=== PATIENT | female | born 1990 | race African-American/Black ===

== ENCOUNTER 2018-04-06 21:09 | Emergency (ER) | payer OTHER ==
[~2018-04-06] VITALS: Ht 157.5 cm; Wt 85.7 kg
[~2018-04-06 21:09] MED LIST: CEFTIN 250 MG250 MG
[2018-04-06 22:01] LABS: ABSOLUTE NEUTROPHILS 7.7 thou/uL (1.4-8.2); BASOPHILS 0.3 % (0.0-2.0); EOSINOPHILS 2.4 % (0.0-3.0); HEMATOCRIT 39.8 % (37.0-47.0); LYMPHOCYTES 18.2 % (24.0-44.0); MCH 29.1 pg (26.0-34.0); MCHC 32.6 g/dL (28.0-37.0); MCV 89.2 fL (80.0-100.0); MONOCYTES 5.6 % (1.0-8.0); PLATELET COUNT 360 thou/uL (150-400); POLYS 73.5 % (36.0-66.0); RBC 4.46 mil/uL (4.20-5.00); RDW 15.8 % (10.5-14.5); WBC 10.5 thou/uL (4.0-11.0)
[2018-04-06 22:04] LABS: ANION GAP 11 mmol/L (7-16); BUN 8 mg/dL (7-18); CALCIUM 9.1 mg/dL (8.5-10.1); CHLORIDE 102 mmol/L (98-107); CO2 27 mmol/L (21-32); CREATININE 0.7 mg/dL (0.6-1.0); GLUCOSE 95 mg/dL (74-106); POTASSIUM 3.8 mmol/L (3.5-5.1); SODIUM 140 mmol/L (136-145)
[2018-04-06 22:11] LABS: BACTERIA-REFLEX None Seen /HPF (None Seen); CASTS None Seen /LPF (None Seen); CRYSTALS None Seen /LPF (None Seen); MUCUS 4-6 Moderate strn/LPF (None Seen); SQUAMOUS 4-10 Moderate /LPF (0-3); TRANSITIONAL EPITHEL CELL 0-3 Few /LPF (None Seen); URINE RBC >20 Many /HPF (0-2); URINE WBC-REFLEX 6-15 Few /HPF (0-5)
[2018-04-06 22:12] LABS: ALBUMIN 3.7 g/dL (3.4-5.0); SGOT 16 U/L (15-37); SGPT 19 U/L (30-65); TOTAL BILIRUBIN 0.2 mg/dL (<0.1-1.0); TOTAL PROTEIN 7.6 g/dL (6.4-8.2); TROPONIN-I <0.06 ng/mL (<0.06)
[2018-04-06 22:19] LABS: URINE CLARITY CLOUDY; URINE COLOR RED
[2018-04-06 22:21] LABS: URINE BILIRUBIN NEGATIVE (Negative); URINE BLOOD 3+ (Negative); URINE GLUCOSE-RANDOM* TRACE (Negative); URINE KETONES 1+ (Negative); URINE PROTEIN (DIPSTICK) 3+ (Negative); URINE SPECIFIC GRAVITY 1.025 (1.005-1.035)
[2018-04-06 22:22] LABS: URINE LEUKOCYTES-REFLEX 2+ (Negative); URINE NITRITE-REFLEX POSITIVE (Negative)
[2018-04-06] MEDS ORDERED: NORFLEX100 MG PO (22:28)
[2018-04-06] MEDS ORDERED: NAPROSYN500 MG PO (22:28)
[2018-04-06 22:36] VITALS: BP 139/76
--- NOTE | 2018-04-07 13:50 | EKG ---
[address] [address] ELECTROCARDIOGRAM REPORT Name: SANDRA DINH Room #: [facility]#: [id number] Admission: 04/06/18 Attend Phys: Discharge: 04/06/18 Date of : 88 Report #: [id number] THIS REPORT FOR: //name// ED Test Date: 2018-04-06 Test Time: 21:21:22 Pat Name: SANDRA DINH Department: Room: Gender: F [employer]: XIOMARA : 1990 Requested By: Jeffrey Ivory Order Number: [id number] MD: Tab Foster Measurements Intervals [place] Rate: 75 P: 28 VT: 119 QRS: 31 QRSD: 91 T: 9 QT: 366 QTc: 409 Interpretive Statements Sinus arrhythmia Borderline T abnormalities, anterior leads No previous ECG available for comparison Electronically Signed On 04-07-2018 13:50:13 RULES EXAMINER by Tab Foster [email or web address] <ELECTRONICALLY SIGNED> By: Tab Foster MD, [facility] 04/07/18 1350 212 20 Tab Foster MD, FACC /EPI
== END 2018-04-06 22:52 | disposition home or self-care (01) ==
LOC: ER 21:09
PROVIDERS: Emergency Medicine
DX: M43.6 Torticollis (principal); R07.89 Other chest pain; R42 Dizziness and giddiness; G44.209 Tension-type headache, unspecified, not intractable; R94.6 Abnormal results of thyroid function studies; Z88.6 Allergy status to analgesic agent

== ENCOUNTER 2018-04-10 11:06 | Emergency (ER) | payer OTHER ==
[~2018-04-10] VITALS: Ht 154.9 cm; Wt 89.4 kg
[~2018-04-10 11:06] MED LIST changes: +NAPROSYN500 MG PO; +NORFLEX100 MG PO
[2018-04-10 11:29] LABS: URINE BILIRUBIN NEGATIVE (Negative); URINE BLOOD 3+ (Negative); URINE CLARITY SL HAZY; URINE COLOR YELLOW; URINE GLUCOSE-RANDOM* NEGATIVE (Negative); URINE KETONES NEGATIVE (Negative); URINE LEUKOCYTES-REFLEX TRACE (Negative); URINE NITRITE-REFLEX NEGATIVE (Negative); URINE PROTEIN (DIPSTICK) TRACE (Negative); URINE SPECIFIC GRAVITY >= 1.030 (1.005-1.035)
[2018-04-10 11:34] LABS: CASTS None Seen /LPF (None Seen); CRYSTALS None Seen /LPF (None Seen); SQUAMOUS 0-3 Few /LPF (0-3); URINE RBC 3-10 Few /HPF (0-2); URINE WBC-REFLEX 0-5 Rare /HPF (0-5)
[2018-04-10 11:58] LABS: ABSOLUTE NEUTROPHILS 6.6 thou/uL (1.4-8.2); BASOPHILS 0.3 % (0.0-2.0); EOSINOPHILS 1.3 % (0.0-3.0); HEMATOCRIT 39.8 % (37.0-47.0); HEMOGLOBIN 13.2 gm/dL (12.0-15.0); LYMPHOCYTES 14.6 % (24.0-44.0); MCH 29.6 pg (26.0-34.0); MCHC 33.3 g/dL (28.0-37.0); MONOCYTES 4.4 % (1.0-8.0); PLATELET COUNT 324 thou/uL (150-400); POLYS 79.4 % (36.0-66.0); RBC 4.47 mil/uL (4.20-5.00); RDW 15.3 % (10.5-14.5); WBC 8.3 thou/uL (4.0-11.0)
[2018-04-10 12:17] LABS: CREATININE 0.9 mg/dL (0.6-1.0); TOTAL BILIRUBIN 0.4 mg/dL (<0.1-1.0); TOTAL PROTEIN 8.2 g/dL (6.4-8.2)
[2018-04-10 12:22] LABS: POTASSIUM 3.6 mmol/L (3.5-5.1)
[2018-04-10] MEDS ORDERED: ZOFRAN ODT4 MG DISSOLVE (12:59)
[2018-04-10 13:48] VITALS: BP 133/63
== END 2018-04-10 13:51 | disposition home or self-care (01) ==
LOC: ER 11:06
PROVIDERS: Emergency Medicine
DX: R11.2 Nausea with vomiting, unspecified (principal); E86.0 Dehydration; R10.30 Lower abdominal pain, unspecified; Z88.8 Allergy status to other drugs, medicaments and biological substances

== ENCOUNTER → 2018-04-12 | Outpatient (CLI) | payer OTHER ==
[~2018-04-12] MED LIST changes: +ZOFRAN ODT4 MG DISSOLVE
== END ==
LOC: CAT 13:39
DX: R10.9 Unspecified abdominal pain (principal); R11.2 Nausea with vomiting, unspecified

== ENCOUNTER → 2018-04-13 | Outpatient (CLI) | payer OTHER | LOC: CAT 16:36 | DX: R51 Headache (principal); R42 Dizziness and giddiness; R11.2 Nausea with vomiting, unspecified; R20.0 Anesthesia of skin; R20.2 Paresthesia of skin ==